=== PATIENT | male | born 1975 | race Caucasian/White ===

== ENCOUNTER → 2016-09-10 | Outpatient (CLI) | payer OTHER ==
--- NOTE | 2016-09-14 09:52 | SLEEPCENT ---
DATE OF PROCEDURE: 09/10/2016 REQUESTING PROVIDER: Ting Najera NP INTERPRETATION: Nocturnal polysomnography was performed for evaluation of sleep apnea syndrome symptoms in this patient with a history of excessive somnolence and nonrestorative sleep. 6 hours and 40 minutes of data were reviewed. There were 351 minutes of sleep identified. Sleep latency was mildly prolonged at 11 minutes. Rapid eye movement (REM) latency was more so prolonged at 236 minutes. Sleep architecture showed fragmentation and poor progression. Overall efficiency was 88%, but there was a significant reduction in REM time. The patient's electrocardiogram (EKG) showed a sinus rhythm with an average heart rate of 100 beats per minute. Rate ranged 86 to 120. Electroencephalogram (EEG) showed reasonably normal waveforms for awake and sleep. There were 214 respiratory events identified of 10 seconds in duration or greater for an apnea-hypopnea index of 36.6. The events were primarily obstructive, not exclusive to sleep stage nor body posture. Arousals from respiratory events occurred 29.4 times per hour. Some limb activity was noted intermittently over the study. Arousals occurred only 6.8 times per hour. IMPRESSION: Obstructive sleep apnea syndrome (G47.33). Apnea-hypopnea index of 36.6. RECOMMENDATIONS: The patient should be encouraged to return to the sleep disorder center for pressure therapy. In the interim, alcohol and sedative avoidance should be practiced and caution exercised during the operation of motor vehicles.
== END ==
LOC: M SLEEP 19:46
PROVIDERS: ATTEND Nurse Practitioner Adult Health
DX: G47.30 Sleep apnea, unspecified (principal)

== ENCOUNTER → 2016-10-01 | Outpatient (CLI) | payer OTHER | LOC: M SLEEP 19:31 | PROVIDERS: ATTEND Internal Medicine Pulmonary Disease | DX: G47.33 Obstructive sleep apnea (adult) (pediatric) (principal) ==